=== PATIENT | female | born 1970 | race Hispanic/Latino ===

== ENCOUNTER 2020-03-17 10:29 | Emergency (ER) | payer SELFPAY ==
--- NOTE | 2020-03-17 12:01 | RAD REPORT ---
EXAM DESCRIPTION: Brian Ku (2 Views)03/17/2020 11:35 am CLINICAL HISTORY: Chest pain COMPARISON: None FINDINGS: The lungs appear clear of acute infiltrate. The heart is normal size IMPRESSION: No acute abnormalities displayed
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
[2020-03-17 14:54] VITALS: TEMP 98.4; O2SAT 99
[2020-03-17 14:56] VITALS: BP 110/81
== END 2020-03-17 13:39 | disposition home or self-care (01) ==
LOC: ER 10:29
DX: R07.89 Other chest pain (principal); V49.49XA Driver injured in collision with other motor vehicles in traffic accident, initial encounter
CPT/HCPCS: 71046; 99284